=== PATIENT | female | born 1995 | race Caucasian/White ===

== ENCOUNTER 2016-07-29 17:33 | Emergency (ER) | payer MEDICAID ==
[2016-07-29 18:08] LABS: Hematocrit 36.4 % (37.0-47.0); Hemoglobin 12.1 gm/dL (12.5-16.0); Mean Corpuscular Hemoglobin 28.3 pg (27-31); Mean Corpuscular Hgb Conc 33.2 g/dl (32-36); Mean Platelet Volume 10.3 fl (6.0-9.5); Platelet Count 279 K/mm3 (150-450); Red Blood Count 4.28 M/mm3 (4.2-5.4); Red Cell Distribution Width 12.4 % (11.5-14.0); White Blood Count 18.7 K/mm3 (4.0-10.5)
[2016-07-29 18:10] LABS: Total Cells Counted 100
[2016-07-29 18:21] LABS: Albumin * 3.7 gm/dl (3.4-5.0); Anion Gap 10.5 mmol/L (6.8-13.8); BUN/Creatinine Ratio 13.6 (9.0-21.6); Bilirubin, Total 0.3 mg/dL (0.0-1.1); Calcium * 9.1 mg/dL (7.9-10.9); Carbon Dioxide 29.3 mmol/L (24-32.6); Potassium 3.8 mmol/L (3.4-4.6); Total Protein 7.9 gm/dL (6.2-8.2)
[2016-07-29 18:41] LABS: Urine Bilirubin Negative (NEGATIVE); Urine Blood Negative /ul (NEGATIVE); Urine Ketone 5 mg/dL (NEGATIVE); Urine Nitrite Negative (NEGATIVE); Urine Protein Negative (NEGATIVE); Urine Specific Gravity >=1.030 SP.GR. (1.005-1.010); Urine Urobilinogen Normal (NORMAL); Urine pH 5.5 pH (5.0-7.0)
[2016-07-29 19:06] LABS: Urine Appearance Clear; Urine Color Yellow
[2016-07-29 19:07] LABS: Urine Bacteria TRACE; Urine RBC None Seen /hpf (0-5); Urine WBC None Seen /hpf (0-5)
[2016-07-29 19:11] LABS: Lymphocyte 26 % (20-51); Monocyte 9 % (0-9); Neutrophil 65 % (42-75); Neutrophil # 12.2 K/mm3 (1.3-6.0); Platelet Estimate Normal (NORMAL)
[2016-07-29 19:12] LABS: RBC Morphology Normal (NORMAL)
--- NOTE | 2016-07-29 20:05 | ERNOTE ---
Abdominal HPI - Narrative Date of Service: 07/30/16 - General Chief Complaint: Abdominal Pain Time Seen by Provider: 07/29/16 20:00 Source: patient, family, RN notes reviewed Exam Limitations: no limitations - Immun/Allergies/Home Medications Immunizatons: IMMUNIZATION HX Immunizations Up to Date Yes History of Influenza Vaccine No Hx Pneumococcal Vaccination No Allergies/Adverse Reactions: Allergies ciprofloxacin [From Cipro] Allergy (Verified 07/29/16 17:51) Hives ciprofloxacin HCl [From Cipro] Allergy (Verified 07/29/16 17:51) Hives Home Medications: HOME MEDICATIONS Doxycycline Monohydrate 100 mg PO BID #28 tablet 07/29/16 [Last Taken Unknown] metroNIDAZOLE [Flagyl] 500 mg PO Q8H #42 tablet 07/29/16 [Last Taken Unknown] - History of Present Illness Narrative: 21 y/o female brought to the ED by her mother for lower abdominal pain that began around midnight. She has no associated symptoms. She has not been sexually active for several months. She has not taken anything for pain. Date (Duration): 07/29/16 Time (Timing): 00:00 Timing: constant Quality: severe, aching Activities at Onset: none Associated Symptoms: Absent: back pain, chest pain, neck pain, fever/chills, heartburn, nausea, vomiting, loss of appetite, swelling/mass in abdomen, syncope , weakness Prior Abdominal Problems: Present: none Prior Treatment: Absent: recently seen Review of Systems - Review of Systems Constitutional: Absent: recent illness, fever, chills EYE: Present: no symptoms reported ENT: Absent: nose congestion, sore throat Respiratory: Absent: shortness of breath, cough Cardiology: Absent: chest pain, syncope Gastrointestinal/Abdominal: Present: abdominal pain. Absent: nausea, vomiting, diarrhea, constipation, eating less, drinking less Genitourinary: Absent: frequency, dysuria, hematuria Musculoskeletal: Absent: back pain, muscle pain Skin: Absent: rash, lesions, lumps Neurological: Absent: headache, dizziness/light-headedness Endocrine: Present: no symptoms reported Hematologic/Lymphatic: Present: no symptoms reported Psych: Present: no symptoms reported - Patient's Past Medical History Patient History - Medical: UTI'S Patient History - Cardiac/Respiratory: No pertinent hx Patient History - Cancer: No Hx of Cancer Patient History - Surgical Procedures: Appendectomy, Other Patient History - Other: None LMP (females 10-50): 1 month - Social History Living Situations: home Abuse History: No History of abuse Psych History: No pertinent hx Smoking Status: Never smoker Alcohol Use: occasionally Drug Use: none - Immunizations Immunizations Up to Date: Yes Hx Pneumococcal Vaccination: No History of Influenza Vaccine: No Physical Exam - Physical Exam General Appearance: Present: alert, no apparent distress, obese Neck: Present: normal inspection, nontender, supple, full range of motion Respiratory: Present: no respiratory distress, normal breath sounds, no accessory muscle use, lungs clear Cardiovascular/Chest: Present: regular rate, rhythm, no murmur, normal peripheral pulses Gastrointestinal/Abdominal: Present: normal bowel sounds, soft, tenderness - severe - lower abdomen/suprapubic, distended - morbid obesity. Absent: guarding , mass, hernia Back Exam: Present: normal inspection, no CVA tenderness Extremity Exam: Present: normal inspection, normal range of motion, no edema Neurological Exam: Present: alert, oriented, normal mood/affect, no motor/ sensory deficits Skin Exam: Present: normal color, warm/dry ED Progress - Results and Orders Patient's Lab Results:: I have reviewed the patient's lab results. - Vital Signs Patient's Vital Signs:: I have reviewed the patient's vital signs. Vital Signs: Vital Signs 07/29/16 07/29/16 07/29/16 17:47 18:57 19:48 Temperature 37.0 C 37.1 C Pulse Rate 100 93 95 Respiratory 16 18 18 Rate Blood Pressure 152/97 129/97 137/88 O2 Sat by Pulse 98 99 100 Oximetry - X-Ray X-Ray #1 X-Ray: abdomen Interpretation: Reviewed by me X-ray Comments: TECHNIQUE: AP upright and supine views of the abdomen were obtained, total of 4 images. COMPARISONS: December 09, 2014 FINDINGS: Abdomen Flat W/ Upright *: No subdiaphragmatic free air. No abnormal dilation of large or small bowel. Mild stool retention noted within the colonic segments. Upright view demonstrates air-fluid level suggestive within the air-filled nondilated loops of sigmoid colon in the pelvis. No definite pathologic calcifications apparent. Osseous structures are intact. IMPRESSION: 1. Nonobstructive bowel gas pattern. Air-fluid levels within the sigmoid colon within the pelvis could represent potential colitis. Correlate clinically. 2. Additional comments as above. Electronically signed by Aurelio Velazquez M.D.. - CT/Ultrasound CT/Ultrasound Narrative: TECHNIQUE: Transabdominal and transvaginal pelvic ultrasound were obtained. COMPARISON: None available. FINDINGS: US Pelvic Complete *, US Transvaginal * Transabdominal Pelvic Ultrasound: Transabdominal imaging overall limited by patient's body habitus. Uterus: 9.6 cm in length by 4.6 cm AP by 4.9 cm transverse. Anteverted. No obvious focal uterine mass. Endometrial stripe was not well seen by transabdominal technique and therefore transvaginal pelvic ultrasound was obtained. Right ovary: Not visualized directly. Potentially obscured by patient' s body habitus as well as overlying bowel gas. Left ovary: 2.6 x 2.6 x 1.8 cm. No dominant cystic or solid mass. Transvaginal Pelvic Ultrasound: Uterus: 9.6 cm in length by 5.3 cm AP by 6.2 cm transverse. Endometrial stripe measurement is 10.0 mm on transvaginal imaging, which is within normal limits. Diffusely echogenic appearance suggestive of secretory phase stripe. Right ovary: 3.9 x 4.5 x 3.8 cm. There is a small cyst, with low level internal echoes measuring 2.2 x 2.1 x 1.7 cm. Left ovary: Not visualized on transvaginal images. Potentially obscured by colonic bowel gas within this area. No free fluid in the cul-de-sac. Color imaging of the ovaries demonstrate pulsatile flow documented bilaterally. IMPRESSION: 1. Limited transabdominal imaging of the uterus and right ovary. 2. Limited transvaginal imaging for the left ovary. Left ovary visualized on transabdominal portion and appears to be within normal limits. 3. Small complex cyst of the right ovary, most likely a small hemorrhagic cyst versus corpus luteal cyst. Infected ovarian cyst or an abscess would be difficult to exclude in the given clinical context but thought to be less likely. Clinical correlation is advised. Consider short-term follow-up ultrasound imaging as needed. 4. Uterus appears to be unremarkable on transvaginal imaging. Preliminary interpretation given by [facility] on 07/29/2016 10:39 PM. Electronically signed by Aurelio Velazquez M.D.. - Progress/Reassessment Chief Complaint: Abdominal Pain Plan - Plan Plan: Patient denied need for pain medication during stay. Pelvic exam deferred as patient has never had one and it would likely be of low yield given her size. Gonorrhea/Chlamydia pending. Cystic lesion of right ovary seen on pelvic US of unknown significance. Will treat empirically for PID given her elevated WBC. Has f/u scheduled with her PCP, agreeable to returning if symptoms worsen. Departure - Departure Clinical Impression: PID (acute pelvic inflammatory disease) Disposition: Home Follow Up Needed Condition: Stable Instructions: Pelvic Pain, Female, [id number], Pelvic Inflammatory Disease, [id number] Additional Instructions: Return for fevers, vomiting or other worsening symptoms Finish all of your antibiotics - abstain from intercourse and from drinking alcohol during treatment Recheck with your doctor in 7-10 days Prescriptions: Doxycycline Monohydrate 100 mg PO BID #28 tablet metroNIDAZOLE [Flagyl] 500 mg PO Q8H #42 tablet
--- OUTSIDE RECORDS SUMMARY | 2016-07-29 20:24 | XMS REPORT | Continuity of Care Document ---
:1995 Author Organization [facility] ([facility]) [place] [address] Phone [phone] Care Team Providers Name Role Phone Unavailable Primary Care Provider Unavailable Source Comments This disclosure is being made pursuant to the Care Everywhere program, applicable federal and state laws, and may not contain all informaitonavailable regarding this patient.[facility] ([facility]) Active Allergies and Adverse Reactions Not on File Current Medications Not on file Active Problems Not on file Social History Tobacco Use Types Packs/Day Years Used Date Never Assessed Plan of Care Health Maintenance Due Date Last Done Comments Hepatitis B Vaccine (1 of 3 - Primary Series) 1995 HPV Vaccine (1 of 3 - Female/Unknown 3 Dose Series) 2005 Tdap Vaccine 2005 Cervical Cancer Screening 01/10/2012 Lipid Disorder Screening 01/10/2012 MMR Vaccine 01/10/2012 Td Vaccine 01/10/2012 Varicella Vaccine (1 of 2 - Adult - No Evidence of 01/10/2012 Immunity) Influenza Vaccine: Seasonal (#1) 09/30/2015 Results from Last 3 Months Not on file
[2016-07-29 21:59] VITALS: BP 152/86
[2016-07-29] MEDS ORDERED: metroNIDAZOLE 250 MG TABLET PO ONE (23:14)
[2016-07-29] MEDS ORDERED: DOXYCYCLINE HYCLATE 100 MG TABLET PO ONE (23:14)
[2016-07-29] MEDS ORDERED: metroNIDAZOLE 250 MG TABLET ONE (23:18)
[2016-07-29] MEDS ORDERED: DOXYCYCLINE HYCLATE 100 MG TABLET ONE (23:18)
== END 2016-07-29 23:27 | disposition home or self-care (01) ==
LOC: ER 17:33
DX: N73.9 Female pelvic inflammatory disease, unspecified (principal)

== ENCOUNTER 2016-08-08 14:15 | Emergency (ER) | payer MEDICAID ==
[2016-08-08 15:05] LABS: Hematocrit 36.3 % (37.0-47.0); Hemoglobin 12.2 gm/dL (12.5-16.0); Mean Cell Volume 84.2 fl (78-100); Mean Corpuscular Hemoglobin 28.3 pg (27-31); Mean Corpuscular Hgb Conc 33.6 g/dl (32-36); Mean Platelet Volume 10.4 fl (6.0-9.5); Neutrophil # 8.7 K/mm3 (1.3-6.0); Neutrophil % 60.2 % (42-75.0); Platelet Count 327 K/mm3 (150-450); Red Blood Count 4.31 M/mm3 (4.2-5.4); Red Cell Distribution Width 12.4 % (11.5-14.0); White Blood Count 14.4 K/mm3 (4.0-10.5)
--- OUTSIDE RECORDS SUMMARY | 2016-08-08 15:15 | XMS REPORT | Continuity of Care Document ---
:1995 Author Organization [facility] ([facility]) Address [address] [place] [address] Phone [phone] Care Team Providers Name Role Phone Unavailable Primary Care Provider Unavailable Source Comments This disclosure is being made pursuant to the Care Everywhere program, applicable federal and state laws, and may not contain all informaitonavailable regarding this patient.[facility] ([facility]) Active Allergies and Adverse Reactions Not [...]
[2016-08-08 15:19] LABS: Albumin * 3.7 gm/dl (3.4-5.0); Anion Gap 14.4 mmol/L (6.8-13.8); BUN/Creatinine Ratio 14.5 (9.0-21.6); Bilirubin, Total 0.3 mg/dL (0.0-1.1); Ca. Corrected For Albumin 8.8 mg/dL (8.4-10.2); Calcium * 8.9 mg/dL (7.9-10.9); Carbon Dioxide 28.2 mmol/L (24-32.6); Potassium 3.6 mmol/L (3.4-4.6); Total Protein 7.8 gm/dL (6.2-8.2)
[2016-08-08 15:48] LABS: Urine Bilirubin Negative (NEGATIVE); Urine Blood 250 /ul (NEGATIVE); Urine Ketone Negative (NEGATIVE); Urine Nitrite Negative (NEGATIVE); Urine Protein Negative (NEGATIVE); Urine Specific Gravity >=1.030 SP.GR. (1.005-1.010); Urine Urobilinogen Normal (NORMAL); Urine pH 5.5 pH (5.0-7.0)
[2016-08-08 15:57] LABS: Cocaine Ur Negative (NEGATIVE); Urine Barbiturate Negative (NEGATIVE); Urine Benzodiazepines Negative (NEGATIVE); Urine Opiates Negative (NEGATIVE); Urine PCP Negative (NEGATIVE); Urine THC Negative (NEGATIVE)
[2016-08-08 16:04] LABS: Urine Appearance Cloudy; Urine Color Yellow; Urine RBC 0-5 /hpf (0-5); Urine WBC 0-5 /hpf (0-5)
[2016-08-08 16:05] LABS: Urine Bacteria 2+; Urine Yeast Few - 1+
[2016-08-08] MEDS ORDERED: DIATRIZOATE MEGLU/DIATRIZO SOD 30 ML BTL PO ONE (16:56)
[2016-08-08] MEDS ORDERED: DIATRIZOATE MEGLU/DIATRIZO SOD 30 ML BTL ONE (16:57)
--- NOTE | 2016-08-08 17:14 | ERNOTE ---
ER Female HPI Date of Service: 08/08/16 Stated Complaint: N/V, PAIN IN PELVIC Time Seen by Provider: 08/08/16 15:02 Source: patient Exam Limitations: no limitations Immunizations: IMMUNIZATION HX Immunizations Up to Date Yes History of Influenza Vaccine No Hx Pneumococcal Vaccination No Allergies/Adverse Reactions: Allergies ciprofloxacin [From Cipro] Allergy (Verified 08/08/16 14:26) Hives ciprofloxacin HCl [From Cipro] Allergy (Verified 08/08/16 14:26) Hives Home Medications: HOME MEDICATIONS Doxycycline Monohydrate 100 mg PO BID #28 tablet 07/29/16 [Last Taken Unknown] metroNIDAZOLE [Flagyl] 500 mg PO Q8H #42 tablet 07/29/16 [Last Taken Unknown] - History of Present Illness Narrative: patient presents to the Er for RLQ abdominal pain and said she had some nausea last night after she took her abx. Date (Duration): 08/08/16 Timing: Present: intermittent Quality: Present: mild, aching Onset Location: Present: RLQ. Absent: periumbilical, right flank, left flank, groin, vaginal, urethral Radiation: Present: none Activities at Onset: Present: physical activity Prior Abdominal Problems: Present: similar symptoms, other - PID dx 2 weeks ago Sexual [place] History: Present: greater than 2 months ago Modifying Factors - (Improves): Present: lying down Modifying Factors - (Worsens): Present: movement Associated Symptoms: Present: nausea, abdominal pain. Absent: fever/chills, diaphoresis, dysuria, urinary frequency Prior Treatment: Present: recently seen, treated by physician, currently on antibiotics Review of Systems - Narrative Narrative: RLQ PAIN WITH WALKING, NAUSEA AFTER ORAL ABX. - Review of Systems Constitutional: Present: See HPI EYE: Present: no symptoms reported ENT: Present: no symptoms reported Respiratory: Present: no symptoms reported Cardiology: Present: no symptoms reported Gastrointestinal/Abdominal: Present: See HPI, nausea. Absent: vomiting, diarrhea Genitourinary: Present: no symptoms reported. Absent: frequency, pain, dysuria , hematuria Musculoskeletal: Present: no symptoms reported Skin: Present: no symptoms reported Neurological: Present: no symptoms reported Endocrine: Present: no symptoms reported Hematologic/Lymphatic: Present: no symptoms reported Psych: Present: no symptoms reported All Other Systems: All systems neg except as marked - Patient's Past Medical History Patient History - Medical: UTI'S Patient History - Cardiac/Respiratory: No pertinent hx Patient History - Cancer: No Hx of Cancer Patient History - Surgical Procedures: Appendectomy, Other Patient History - Other: None - Social History Living Situations: home Abuse History: No History of abuse Psych History: No pertinent hx Smoking Status: Never smoker Patient requests Smoking Cessation Consult: No Initiate information on Smoking Cessation: No Alcohol Use: occasionally Drug Use: none - Immunizations Immunizations Up to Date: Yes Hx Pneumococcal Vaccination: No History of Influenza Vaccine: No Physical Exam - Physical Exam Narrative: I WAS NOT ABLE TO REPRODUCE ANY PAIN WITH MY EXAM. PATIENT STATES PAIN COMES AND GOES. PATIENT STATED THE LAST TIME SHE HAD PAIN WAS WHEN SHE WAS WALKING IN TO FACILITY. PT DID NOT WANT A PELVIC. STATES SHE THOUGH SHE MIGHT HAVE A YEAST INFECTION. General Appearance: Present: wd/wn, alert, no apparent distress Eye Exam: Normal inspection: bilateral Ears, Nose, Throat: Present: normal ENT inspection Neck: Present: normal inspection, nontender Respiratory: Present: no respiratory distress, normal breath sounds, chest nontender, lungs clear Cardiovascular/Chest: Present: regular rate, rhythm, no murmur, normal peripheral pulses Gastrointestinal/Abdominal: Present: normal bowel sounds, nontender, nondistended, soft, no organomegaly. Absent: tenderness, guarding, rebound, mass Back Exam: Present: normal inspection, normal range of motion, no CVA tenderness , no vertebral tenderness Extremity Exam: Present: normal inspection, non-tender, normal range of motion, no edema Neurological Exam: Present: alert, oriented, normal mood/affect, no motor/ sensory deficits Skin Exam: Present: normal color, warm/dry Lymphatic Exam: Present: no adenopathy ED Progress - Results and Orders Patient's Lab Results:: I have reviewed the patient's lab results. Results and Orders: WILL FOLLOW URINE CULTURE. PATIENT IS CURRENTLY ON ABX AT THIS TIME. - Vital Signs Patient's Vital Signs:: I have reviewed the patient's vital signs. Vital Signs: Vital Signs 08/08/16 08/08/16 08/08/16 14:22 16:23 16:53 Temperature 37.1 C Pulse Rate 93 83 70 Respiratory 18 12 Rate Blood Pressure 147/86 140/96 112/53 O2 Sat by Pulse 98 98 100 Oximetry - CT/Ultrasound CT/Ultrasound Narrative: [facility] PATIENT RADIOLOGY STUDY REPORT Patient Patient Name:LYSSA KEYES Date: 1995 Sex: F Order Number: [id number] Unique Exam ID: [id number] Exam Requested: PELVIC COM - US Pelvic Complete * Date Scheduled: Study Priority: Requesting Service: Requesting Physician: Roel Kolb Reason for Exam: right lower abd pain Radiological Report : Exam Date: 08/08/2016 15:10 Ordering Physician: Roel Kolb HISTORY: 21 years Female right lower abd pain Additional history from technologist: Negative beta-hCG. Right lower quadrant abdominal pain. History of LMP one month ago. . TECHNIQUE: Transabdominal and transvaginal pelvic ultrasound were obtained. COMPARISON: 07/29/2016 FINDINGS: US Pelvic Complete *, US Transvaginal * Transabdominal Pelvic Ultrasound: Uterus: 9.9 cm in length by 5.5 cm AP by 6.1 cm transverse. Anteverted. No focal uterine mass. Endometrial stripe was not well seen by transabdominal technique and therefore transvaginal pelvic ultrasound was obtained. Right ovary: Not visualized. Potentially obscured by bowel gas. Left ovary: 3.0 x 2.0 x 2.3 cm. No dominant cystic or solid mass. Color flow seen. Transvaginal Pelvic Ultrasound: Uterus: 9.9 cm in length by 5.9 cm AP by 4.9 cm transverse. Endometrial stripe measurement is 9.0 mm on transvaginal imaging, which is within normal limits. Right ovary: 2.7 x 3.5 x 2.9 cm. No dominant cystic or solid mass. Previously seen complex cyst does not persist on the current examination. Color flow seen. Left ovary: Not visualized by transvaginal technique. May be obscured by adjacent bowel gas. No free fluid in the cul-de-sac. IMPRESSION: 1. Overall negative examination without definite focal acute finding. 2. Interval resolution of complex right ovarian cyst seen previously. Color flow seen by transvaginal technique. 3. Left ovary seen only on transabdominal technique. No focal mass. Color-flow demonstrated by transabdominal imaging. 4. Additional comments are as above. Electronically signed by Aurelio Velazquez M.D.. Approved by: Approval Date: 08-08-2016 Approval Time: 04:16 PM THIS REPORT WAS RECEIVED FROM THE [facility] - Progress/Reassessment Chief Complaint: Genitourinary Problem Progress:: Unchanged Plan - Plan Plan: Patient continues to complain of right intermittent lower abdominal quadrant pain. States that pain is not very intense just intermittent and dull. Patient does not have her appendix. Ultrasound showed nothing on her right ovary which on a previous ultrasound she had a 2 x 2 x 1.7 cm cyst.. Patient has not been febrile and denies nausea or vomiting at this time. Patient denies any diarrhea at this time. Patient instructed to follow up with her [facility] on Wednesday. Patient was given a list of medications that are ijyr-lyi-vqvzjve to treat her yeast infections Departure Clinical Impression: UTI (urinary tract infection) Qualifiers: Urinary tract infection type: site unspecified Hematuria presence: with hematuria Qualified Code(s): N39.0 - Urinary tract infection, site not specified - Departure Disposition: Home Follow Up Needed Condition: Stable Instructions: Urinary Tract Infection, Adult, [id number], Urine Culture and Sensitivity Testing Additional Instructions: Continue her current antibiotic orders. Urine cultures were sent regarding the urinalysis you had today. you will be notified if antibiotics need to be changed by the hospital. She should follow up with [facility] on Wednesday or your primary care provider. you have Been given a list of primary care providers to choose from. Please return to the emergency room if you have a fever or pain is unable to be controlled with [id number] pain medications. You may treat her use infection with [id number]-ljr-[id number] medication.
[2016-08-08 17:36] VITALS: BP 135/73
== END 2016-08-08 17:38 | disposition home or self-care (01) ==
LOC: ER 14:15
DX: N39.0 Urinary tract infection, site not specified (principal)

== ENCOUNTER 2016-10-02 23:33 | Emergency (ER) | payer MEDICAID ==
[2016-10-02] MEDS ORDERED: ACETAMINOPHEN 500 MG TABLET PO ONE (23:48)
--- NOTE | 2016-10-02 23:58 | ERNOTE ---
Lower Extremity HPI - Narrative Date of Service: 10/02/16 - General Lower Extremities Pain: ankle: right Time Seen by Provider: 10/02/16 23:47 Source: patient Exam Limitations: no limitations - Immun/Allergies/Home Medications Immunizations: IMMUNIZATION HX Immunizations Up to Date Yes History of Influenza Vaccine Yes Hx Pneumococcal Vaccination No Allergies/Adverse Reactions: Allergies Allergy/AdvReac Type Severity Reaction Status Date / Time ciprofloxacin [From Cipro] Allergy Hives Verified 08/08/16 14:26 ciprofloxacin HCl Allergy Hives Verified 08/08/16 14:26 [From Cipro] Home Medications: HOME MEDICATIONS Naproxen [Naprosyn] 500 mg PO BID #20 tablet 10/02/16 [Last Taken Unknown] - History of Present Illness Narrative: 21-year-old that was running a flip flops and subsequently twisted her left ankle. She is able to walk on her toes on the affected side crutches. No other injuries were sustained. No medications were taken prior to being seen in the emergency department. Occurred: just prior to arrival Location of Incident: home Method of Injury: Reports: twisted Reason for Fall: Reports: tripped Loss of Consciousness: Reports: no loss of consciousness Modifying Factors - (Improves): Reports: other - rest Modifying Factors - (Worsens): Reports: other - wieght bearing Other Injuries: Reports: none Prior Treament: Reports: other - none Review of Systems - Review of Systems Constitutional: Present: no symptoms reported EYE: Present: no symptoms reported ENT: Present: no symptoms reported Respiratory: Present: no symptoms reported Cardiology: Present: no symptoms reported Gastrointestinal/Abdominal: Present: no symptoms reported Genitourinary: Present: no symptoms reported Musculoskeletal: Present: See HPI Skin: Present: no symptoms reported Neurological: Present: no symptoms reported Endocrine: Present: no symptoms reported - Patient's Past Medical History Patient History - Medical: UTI'S Patient History - Cardiac/Respiratory: No pertinent hx Patient History - Cancer: No Hx of Cancer Patient History - Surgical Procedures: Appendectomy Patient History - Other: None LMP (females 10-50): 1 month - Social History Living Situations: significant other Abuse History: No History of abuse Psych History: No pertinent hx Smoking Status: Never smoker Have you smoked in the past 12 months: No Do you dip or chew tobacco: No Alcohol Use: occasionally Drug Use: none - Immunizations Immunizations Up to Date: Yes Hx Pneumococcal Vaccination: No History of Influenza Vaccine: Yes Physical Exam - Physical Exam Narrative: Morbidly obese. General Appearance: Present: no apparent distress Head Exam: Present: normal inspection Eye Exam: Normal inspection: bilateral Ears, Nose, Throat: Present: normal ENT inspection Neck: Present: normal inspection Respiratory: Present: no respiratory distress Cardiovascular/Chest: Present: regular rate, rhythm Gastrointestinal/Abdominal: Present: nondistended Back Exam: Present: normal inspection Extremity Exam: Present: joint swelling - left ankle. Tenderness at the calcaneotalar ligament. No significant tenderness at the foot. NV intact distally. Neurological Exam: Present: alert, oriented Skin Exam: Present: normal color ED Progress - Vital Signs Patient's Vital Signs:: I have reviewed the patient's vital signs. Vital Signs: Vital Signs 10/02/16 23:37 Temperature 36.2 C L Pulse Rate 110 H Respiratory 16 Rate Blood Pressure 160/89 O2 Sat by Pulse 98 Oximetry - X-Ray X-Ray #1 X-Ray: ankle Interpretation: Interp. by me X-ray Comments: Small avulsion fracture at the lateral malleolus. - Progress/Reassessment Chief Complaint: Lower Extremity Pain/ Injury Progress:: Improved Departure Clinical Impression: Avulsion fracture of left ankle - Departure Disposition: Home self-care Condition: Fair Instructions: Ankle Fracture, [id number] Print Language: Malay Additional Instructions: No weight bearing on the left ankle. Keep the leg elevated and use ice liberally to reduce the pain/swelling. Referrals: Soham Alvarez MD [Staff Physician] - Prescriptions: Naproxen [Naprosyn] 500 mg PO BID #20 tablet
[2016-10-03] MEDS ORDERED: KETOROLAC TROMETHAMINE 30 MG/ML VIAL IM ONE (00:15)
[2016-10-03] MEDS ORDERED: KETOROLAC TROMETHAMINE 30 MG/ML VIAL ONE (00:23)
[2016-10-03 01:56] VITALS: BP 121/63
== END 2016-10-03 00:39 | disposition home or self-care (01) ==
LOC: ER 23:33
PROC: 2W3SX1Z Immobilization of Right Foot using Splint (ICD-10-PCS; principal; 2016-10-02)
DX: S82.61XA Displaced fracture of lateral malleolus of right fibula, initial encounter for closed fracture (principal); X58.XXXA Exposure to other specified factors, initial encounter; Y93.02 Activity, running; Y92.009 Unspecified place in unspecified non-institutional (private) residence as the place of occurrence of the external cause; Y99.9 Unspecified external cause status